=== PATIENT | female | born 1990 | race Caucasian/White ===

== ENCOUNTER 2023-12-18 08:21 | Outpatient (CLI) | payer MEDICAID ==
[2023-12-18] VITALS (22 sets, daily range): BP systolic 89–142; BP diastolic 37–83; PULSE 58–88
[~2023-12-18 08:21] MED LIST: FERGLU300T PO; NO HOME MEDS
== END 2023-12-18 23:59 | disposition home or self-care (01) ==
LOC: CARD DIAG 08:21
PROVIDERS: ATTEND Nurse Practitioner Family
DX: M35.7 Hypermobility syndrome (principal); M41.9 Scoliosis, unspecified
CPT/HCPCS: 93660